=== PATIENT | male | born 1960 | race Caucasian/White ===

== ENCOUNTER 2017-09-28 19:49 | Observation (INO) | payer BC, SELFPAY ==
[2017-09-28] MEDS ORDERED: ONDANSETRON 4 MG (ODT) TAB ONE (20:34)
[2017-09-28] MEDS ORDERED: PROMETHAZINE 25 MG/ML VIAL ONE ×2 (21:34→23:30)
[2017-09-28] MEDS ORDERED: ONDANSETRON 4 MG/2 ML VIAL ONE (21:34)
[2017-09-28] MEDS ORDERED: NA CHLORIDE 0.9% 1,000 ML ONE ×2 (21:34→22:23)
[2017-09-28 21:42] LABS: Absolute Lymphocytes (CBC) 0.6 K/uL (0.7-4.9); Absolute Neutrophil 10.9 K/uL (1.8-8.0); Basophils % 0.4 % (0-1.3); Hematocrit 46.5 % (39.6-49.0); MCH 36.8 pg (27.0-35.0); MCV 107.4 fL (80-100); MPV 8.9 fL (7.6-11.3); Monocytes % 8.3 % (3.3-12.3); RBC Red Blood Cell Count 4.33 M/uL (4.33-5.43)
[2017-09-28 22:13] LABS: Blood Morphology Comment NOTED (NOT SEEN); Macrocytosis 1+; Platelet Estimate ADEQ; Urine White Blood Cell Casts OK
[2017-09-28] MEDS ORDERED: THIAMINE 200 MG/2 ML INJ ONE (22:21)
[2017-09-28] MEDS ORDERED: MULTIVITAMINS 10 ML VIAL (INJ) IV ONE (22:21)
[2017-09-28] MEDS ORDERED: FOLIC ACID 5 MG/ML VIAL ONE (22:23)
[2017-09-28] MEDS ORDERED: DIAZEPAM 5 MG TABLET ONE (22:32)
[2017-09-28 23:02] LABS: ALT/SGPT 119 U/L (12-78); AST/SGOT 80 U/L (15-37); Albumin 3.9 g/dL (3.4-5.0); Alkaline Phosphatase 70 U/L (45-117); Amylase Level 133 U/L (25-115); BUN Blood Urea Nitrogen 10 mg/dL (7-18); Bicarbonate 22 mmol/L (21-32); Bilirubin Direct 0.5 mg/dL (0-0.2); Bilirubin Total 1.6 mg/dL (0.2-1.0); Glucose Level 113 mg/dL (74-106); Lipase 297 U/L (73-393); Potassium 4.3 mmol/L (3.5-5.1); Protein, Total 7.3 g/dL (6.4-8.2); Sodium Level 141 mmol/L (136-145)
[2017-09-28 23:08] LABS: Alcohol Serum/Plasma < 3 mg/dL (<3)
[2017-09-29 00:44] LABS: Urine Blood NEGATIVE (NEG); Urine Glucose NEGATIVE (NEG); Urine Protein 2+ (NEG); Urine pH 7.5 (5.0-7.0)
--- NOTE | 2017-09-29 01:09 | RAD REPORT ---
EXAM DESCRIPTION: CTAbdomen Pelvis W Contrast - 09/29/2017 12:32 am CLINICAL HISTORY: Abdominal pain. nausea/vomiting COMPARISON: No comparisons TECHNIQUE: Biphasic CT imaging of the abdomen and pelvis was performed with 100 ml non-ionic IV cont rast. All CT scans are performed using dose optimization technique as appropriate and may include automated exposure control or mA/KV adjustment according to patient size. FINDINGS: The lung bases are clear.Small hiatal hernia is seen with irregular asymmetric calcificati on noted in the distal esophagus. The thickened portion of the distal esophagus measures up to 14 mm. The liver demonstrates diffuse fatty infiltration. No focal liver lesion or intrahepatic biliary dila tation. The spleen, pancreas, adrenal glands and kidneys within normal limits. No bowel obstruction, free air, free fluid or abscess. The appendix is normal. No evidence of signi ficant lymphadenopathy. No suspicious bony findings. Nodularity involves prostate gland which projects into the bladder base. IMPRESSION: Irregular asymmetric thickening of the distal esophagus with calcification is noted. The findings are worrisome for an esophageal mass. Advise follow-up upper endoscopy. Prominent fatty liver. Nodular enlargement of the prostate gland is seen projecting into the bladder base. Correlation with PSA levels is suggested.
[2017-09-29 02:10] LABS: Urine Bacteria <20 /HPF (NONE SEEN); Urine Mucus 3+ /HPF (NONE SEEN); Urine RBC <5 /HPF (NONE SEEN)
[2017-09-29 02:11] LABS: Urine Culture Reflex Order NOT NEEDED
--- NOTE | 2017-09-29 02:50 | ER ---
Nurse's Notes [facility] Name: Ant De La Paz Age: 56 yrs Sex: Male : 1960 Arrival Date: 09/28/2017 Time: 19:53 Bed 17 Private MD: Diagnosis: Nausea and vomiting-Intractable Presentation: 09/28 20:25 Presenting complaint: Patient states: He has been vomiting since 0500 this morning. aj1 Reports generalized abdominal pain, vomiting, diarrhea. Denies fever. Transition of care: patient was not received from another setting of care. Onset of symptoms was September 28, 2017 at 05:00. Risk Assessment: Do you want to hurt yourself or someone else? Patient reports no desire to harm self or others. Initial Sepsis Screen: Does the patient meet any 2 criteria? HR > 90 bpm. Does the patient have a suspected source of infection? No. Patient's initial sepsis screen is negative. Care prior to arrival: None. 20:25 Method Of Arrival: Wheelchair aj1 20:25 Acuity: CONOR 3 aj1 Triage Assessment: 20:28 General: Appears uncomfortable, Behavior is cooperative, agitated, restless. Pain: aj1 Denies pain. Neuro: Level of Consciousness is awake, alert, obeys commands. Cardiovascular: Patient's skin is warm and dry. Respiratory: Airway is patent Respiratory effort is even, unlabored, Respiratory pattern is regular, symmetrical. GI: Reports diarrhea, nausea, vomiting. Historical: - Allergies: 20:28 No Known Allergies; aj1 - Home Meds: 20:28 levetiracetam 750 mg oral tab 1 tab 2 times per day [Active]; escitalopram oxalate 20 aj1 mg oral tab 1 tab once daily [Active]; lisinopril 10 mg Oral tab 1 tab once daily [Active]; - PMHx: 20:28 Seizures; Hypertension; aj1 20:28 Pancreatitis; aj1 - Social history:: Smoking status: Patient uses tobacco products, smokes two packs cigarettes per day. - Ebola Screening: : Patient denies travel to an Ebola-affected area in the 21 days before illness onset. Screenin:28 Abuse screen: Denies threats or abuse. Denies injuries from another. Nutritional lp1 screening: No deficits noted. Tuberculosis screening: No symptoms or risk factors identified. Fall Risk None identified. Assessment: 21:27 General: Appears uncomfortable, Behavior is appropriate for age, Reports feeling ill lp1 for 12-24 hours, fatigue for. Pain: Complains of pain in abdomen Pain currently is 8 out of 10 on a pain scale. Quality of pain is described as sharp. Neuro: Level of Consciousness is awake, alert, obeys commands. Cardiovascular: Patient's skin is warm and dry. Respiratory: Respiratory effort is even, unlabored. GI: Pt is actively vomiting clear fluid. : No signs and/or symptoms were reported regarding the genitourinary system. EENT: No signs and/or symptoms were reported regarding the EENT system. Derm: Skin is intact, Skin is dry, Skin is flushed. Musculoskeletal: Circulation, motion, and sensation intact. 22:30 Reassessment: Patient and/or family updated on plan of care and expected duration. Pain lp1 level reassessed. Patient states feeling better. Patient states symptoms have improved. 22:42 Reassessment: Patient vomited at this time. lp1 23:30 Reassessment: Patient vomited at this time, provider notified. lp1 09/29 00:30 Reassessment: Patient is alert, oriented x 3, equal unlabored respirations, skin lp1 warm/dry/pink. Nausea decreased at this time Patient states feeling better. 01:35 Reassessment: Patient and/or family updated on plan of care and expected duration. Pain lp1 level reassessed. Provider at bedside to discuss results with patient and family. 02:15 Reassessment: Patient unable to tolerate PO fluids, attempted to drink 120ml of water; lp1 Patent vomited 300ml. 03:00 Reassessment: Patient continuing to have nausea, vomiting; Provider notified. lp1 03:50 Reassessment: Patient resting, comfortably, eyes closed, respirations unlabored; O2 at lp1 89% on RA, 2L NC placed while sleeping. 04:13 Reassessment: Dr. Justice at bedside. lp1 Vital Signs: 09/28 20:29 BP 150 / 100; Pulse 104; Resp 24; Temp 97.1(A); Pulse Ox 100% on R/A; Weight 80.74 kg aj1 (R); Height 6 ft. 0 in. (182.88 cm) (R); Pain 0/10; 21:41 BP 150 / 100; Pulse 85; Resp 20; Pulse Ox 100% on R/A; Pain 8/10; lp1 22:30 BP 139 / 89; Pulse 86; Resp 18; Pulse Ox 98% on R/A; lp1 23:00 BP 151 / 98; Pulse 90; Resp 20; Pulse Ox 99% on R/A; lp1 09/29 00:30 BP 137 / 99; Pulse 96; Resp 18; Pulse Ox 98% on R/A; lp1 01:36 BP 134 / 86; Pulse 100; Resp 18; Pulse Ox 98% on R/A; lp1 03:15 BP 116 / 80; Pulse 100; Resp 18; Pulse Ox 94% on R/A; lp1 04:13 BP 112 / 80; Pulse 78; Resp 18; Pulse Ox 97% on 2 lpm NC; lp1 09/28 20:29 Body Mass Index 24.14 (80.74 kg, 182.88 cm) aj1 ED Course: 09/28 19:53 Patient arrived in ED. es 20:26 Triage completed. aj1 20:29 Arm band placed on Patient placed in waiting room, Patient notified of wait time. aj1 21:16 Noreen Varma, RN is Primary Nurse. lp1 21:27 Inserted saline lock: 22 gauge in right antecubital area, using aseptic technique. lp1 Blood collected. 21:28 Patient has correct armband on for positive identification. Placed in gown. Bed in low lp1 position. Call light in reach. Pulse ox on. NIBP on. 22:06 Deloris Toledo FNP-C is PHCP. snw 22:06 Satya Parra MD is Attending Physician. snw 22:06 PHCP role handed off by Deloris Toledo FNP-C snw 22:06 Jovan Londono PA is PHCP. snw 22:08 Lab(s) recollected, by director of laboratory operations. lp1 09/29 00:[address] via wheelchair. kw1 00:27 CT completed. Patient tolerated procedure well. Patient moved back from CT. kw1 00:31 CT Abd/Pelvis - W/Contrast: no oral contrast In Process Unspecified. EDMS 01:36 No provider procedures requiring assistance completed. lp1 02:48 Juliane Beckham MD is Hospitalizing Provider. cp 03:33 Patient admitted, IV remains in place. lp1 Administered Medications: 09/28 20:34 Drug: Zofran 4 mg Route: PO; aj1 21:28 Follow up: Response: Nausea unchanged lp1 21:41 Drug: NS 0.9% 1000 ml Route: IV; Rate: 1000 ml; Site: right antecubital; lp1 22:40 Follow up: IV Status: Completed infusion; IV Intake: 1000ml lp1 21:41 Drug: Zofran 4 mg Route: IVP; Site: right antecubital; lp1 22:40 Follow up: Response: Nausea is decreased lp1 21:41 Drug: Phenergan 6.25 mg Route: IVP; Site: right antecubital; lp1 22:41 Follow up: Response: Nausea is decreased lp1 22:40 Not Given (Physician Discretion): Valium 5 mg IVP once lp1 22:40 Drug: Banana Bag - (NS 0.9% 1000 ml, foLIC Acid 1 mg, Thiamine 100 mg, Multivitamin 1 lp1 amp) Route: IV; Rate: 125 ml/hr; Site: right antecubital; 09/29 04:25 Follow up: IV Status: IV converted to saline lock lp1 09/28 22:40 Drug: Valium 5 mg Route: PO; lp1 23:32 Follow up: Response: No adverse reaction lp1 23:31 Drug: Phenergan 25 mg Route: IVP; Site: right antecubital; lp1 09/29 01:33 Follow up: Response: Nausea is decreased lp1 03:10 Drug: Reglan 10 mg Route: IVP; Site: right antecubital; lp1 03:54 Follow up: Response: Nausea is decreased lp1 03:10 Drug: Ativan 1 mg Route: IVP; Site: right antecubital; lp1 03:54 Follow up: Response: Marked relief of symptoms lp1 Intake: 09/28 22:40 IV: 1000ml; Total: 1000ml. lp1 Output: 22:45 Gastric: 300ml (Emesis); Total: 300ml. lp1 Outcome: 09/29 02:49 Decision to Hospitalize by Provider. cp 03:33 Condition: stable lp1 03:33 Instructed on the need for admit. 04:24 Admitted to [facility] via wheelchair, room 417, with chart, Report called to CINDY Castellon lp1 04:34 Patient left the ED. lp1 Signatures: Dispatcher [employer] Janie Campoverde RN RN aj1 Deloris Toledo, TANVI PAPER MACHINE BACKTENDER-Tiny Bliss Laura, RN RN lp1 Jovan Londono PA PA cp Wilhelm, Kimberly kw1 Corrections: (The following items were deleted from the chart) 09/28 23:19 21:27 Derm: Skin is intact, Skin is dry, Skin is normal, lp1 lp1
--- NOTE | 2017-09-29 02:50 | EDPHYS ---
Physician Documentation [facility] Name: Ant De La Paz Age: 56 yrs Sex: Male : 1960 Arrival Date: 09/28/2017 Time: 19:53 Bed 17 Private MD: ED Physician Satya Parra HPI: 09/28 21:59 This 56 yrs old Male presents to ER via Wheelchair with complaints of snw Vomiting, DEHYDRATION,CHILLS. 21:59 The patient presents to the emergency department with nausea, vomiting, abdominal pain, snw of the generalized. Onset: The symptoms/episode began/occurred suddenly, this morning. Possible causes: unknown. The symptoms are aggravated by nothing. Associated signs and symptoms: Pertinent positives: tremor and chills/hot flashes/sweating. Severity of symptoms: At their worst the symptoms were moderate severe. It is unknown whether or not the patient has had similar symptoms in the past. The patient has not recently seen a physician. awoke at 0500 with abd discomfort. Slept until 0700, vomited x 2 episodes, drove down from [place]. Upon arrival to [facility] pt states he became sweaty and has vomited every 5-10 minutes since. Historical: - Allergies: 20:28 No Known Allergies; aj1 - Home Meds: 20:28 levetiracetam 750 mg oral tab 1 tab 2 times per day [Active]; escitalopram oxalate 20 aj1 mg oral tab 1 tab once daily [Active]; lisinopril 10 mg Oral tab 1 tab once daily [Active]; - PMHx: 20:28 Seizures; Hypertension; aj1 20:28 Pancreatitis; aj1 - Social history:: Smoking status: Patient uses tobacco products, smokes two packs cigarettes per day. - Ebola Screening: : Patient denies travel to an Ebola-affected area in the 21 days before illness onset. ROS: 21:59 Constitutional: Negative for fever, chills, and weight loss, Eyes: Negative for injury, snw pain, redness, and discharge, ENT: Negative for injury, pain, and discharge, Neck: Negative for injury, pain, and swelling, Cardiovascular: Negative for chest pain, palpitations, and edema, Respiratory: Negative for shortness of breath, cough, wheezing, and pleuritic chest pain, Back: Negative for injury and pain, : Negative for injury, bleeding, discharge, and swelling, MS/Extremity: Negative for injury and deformity, Skin: Negative for injury, rash, and discoloration, Neuro: Negative for headache, weakness, numbness, tingling, and seizure. 21:59 Abdomen/GI: Positive for abdominal pain, nausea and vomiting. Exam: 21:57 Constitutional: This is a well developed, well nourished patient who is awake, alert, snw and in no acute distress. 21:57 Head/Face: Normocephalic, atraumatic. Eyes: Pupils equal round and reactive to light, extra-ocular motions intact. Lids and lashes normal. Conjunctiva and sclera are non-icteric and not injected. Cornea within normal limits. Periorbital areas with no swelling, redness, or edema. ENT: Nares patent. No nasal discharge, no septal abnormalities noted. Tympanic membranes are normal and external auditory canals are clear. Oropharynx with no redness, swelling, or masses, exudates, or evidence of obstruction, uvula midline. Mucous membranes moist. Neck: Trachea midline, no thyromegaly or masses palpated, and no cervical lymphadenopathy. Supple, full range of motion without nuchal rigidity, or vertebral point tenderness. No Meningismus. Chest/axilla: Normal chest wall appearance and motion. Nontender with no deformity. No lesions are appreciated. 21:57 Respiratory: Lungs have equal breath sounds bilaterally, clear to auscultation and percussion. No rales, rhonchi or wheezes noted. No increased work of breathing, no retractions or nasal flaring. Back: No spinal tenderness. No costovertebral tenderness. Full range of motion. 21:57 Constitutional: The patient appears alert, anxious. 21:57 Cardiovascular: Rate: tachycardic, Heart sounds: normal. 21:57 Abdomen/GI: Inspection: abdomen appears normal, Bowel sounds: active, all quadrants, Palpation: mild abdominal tenderness, in all quadrants. 21:57 Skin: Appearance: Color: lalitha, Temperature: warm, Moisture: dry. 21:57 Neuro: Orientation: is normal, Mentation: is normal, seizure activity, is not displayed by the patient, Abnormal movements: tremulous. Vital Signs: 20:29 BP 150 / 100; Pulse 104; Resp 24; Temp 97.1(A); Pulse Ox 100% on R/A; Weight 80.74 kg aj1 (R); Height 6 ft. 0 in. (182.88 cm) (R); Pain 0/10; 21:41 BP 150 / 100; Pulse 85; Resp 20; Pulse Ox 100% on R/A; Pain 8/10; lp1 22:30 BP 139 / 89; Pulse 86; Resp 18; Pulse Ox 98% on R/A; lp1 23:00 BP 151 / 98; Pulse 90; Resp 20; Pulse Ox 99% on R/A; lp1 09/29 00:30 BP 137 / 99; Pulse 96; Resp 18; Pulse Ox 98% on R/A; lp1 01:36 BP 134 / 86; Pulse 100; Resp 18; Pulse Ox 98% on R/A; lp1 03:15 BP 116 / 80; Pulse 100; Resp 18; Pulse Ox 94% on R/A; lp1 04:13 BP 112 / 80; Pulse 78; Resp 18; Pulse Ox 97% on 2 lpm NC; lp1 09/28 20:29 Body Mass Index 24.14 (80.74 kg, 182.88 cm) [facility] MDM: 09/28 22:06 Patient medically screened. snw 09/29 02:47 Data reviewed: vital signs, nurses notes, lab test result(s), radiologic studies, CT cp scan, and as a result, I will admit patient. Response to treatment: the patient's symptoms have mildly improved after treatment, VSS. Patient continues to vomit with po fluids. Physician consultation: Juliane Beckham MD was contacted at 02:48, regarding admission, to the medical/surgical unit. patient's condition. 09/28 21:21 Order name: Amylase, Serum; Complete Time: 23:22 snw 09/28 21:21 Order name: Basic Metabolic Panel; Complete Time: 23:22 snw 09/29 01:04 Interpretation: Normal except: GLUC 113; GFR 57. cp 09/28 21:21 Order name: CBC with Diff; Complete Time: 22:18 snw 09/29 02:17 Interpretation: Normal except: WBC 12.6; MCV 107.4; MCH 36.8; ADELA% 86.3; LYM% 5.0; NEUT cp A 10.9; LYMA 0.6. 09/28 21:21 Order name: Creatinine for Radiology; Complete Time: 23:22 snw 09/28 21:21 Order name: Hepatic Function; Complete Time: 23:22 snw 09/28 21:21 Order name: Lipase; Complete Time: 23:22 snw 09/28 21:21 Order name: Urine Microscopic Only; Complete Time: 02:17 snw 09/29 02:17 Interpretation: Normal except: MUCUS 3+. 09/28 21:45 Order name: CBC Smear Scan; Complete Time: 22:18 EDMS 09/28 22:03 Order name: AMMONIA; Complete Time: 23:22 snw 09/28 22:49 Order name: Alcohol Serum/Plasma; Complete Time: 23:22 EDMS 09/28 23:24 Order name: CT Abd/Pelvis - W/Contrast: no oral contrast; Complete Time: 01:11 cp 09/29 02:18 Interpretation: Report reviewed. 09/29 00:24 Order name: Urine Dipstick--Ancillary (enter results); Complete Time: 01:04 ms 09/29 02:18 Interpretation: Normal except: UKET 4+; UPH 7.5; UPROT 2+. 09/28 21:21 Order name: IV Saline Lock; Complete Time: 21:26 snw 09/28 21:21 Order name: Labs collected and sent; Complete Time: 21:27 [facility] 09/28 21:21 Order name: Urine Dipstick-Ancillary (obtain specimen); Complete Time: 00:28 [facility] 09/29 01:13 Order name: PO challenge; Complete Time: 02:23 cp Administered Medications: 09/28 20:34 Drug: Zofran 4 mg Route: PO; aj1 21:28 Follow up: Response: Nausea unchanged lp1 21:41 Drug: NS 0.9% 1000 ml Route: IV; Rate: 1000 ml; Site: right antecubital; lp1 22:40 Follow up: IV Status: Completed infusion; IV Intake: 1000ml lp1 21:41 Drug: Zofran 4 mg Route: IVP; Site: right antecubital; lp1 22:40 Follow up: Response: Nausea is decreased lp1 21:41 Drug: Phenergan 6.25 mg Route: IVP; Site: right antecubital; lp1 22:41 Follow up: Response: Nausea is decreased lp1 22:40 Not Given (Physician Discretion): Valium 5 mg IVP once lp1 22:40 Drug: Banana Bag - (NS 0.9% 1000 ml, foLIC Acid 1 mg, Thiamine 100 mg, Multivitamin 1 lp1 amp) Route: IV; Rate: 125 ml/hr; Site: right antecubital; 09/29 04:25 Follow up: IV Status: IV converted to saline lock lp1 09/28 22:40 Drug: Valium 5 mg Route: PO; lp1 23:32 Follow up: Response: No adverse reaction lp1 23:31 Drug: Phenergan 25 mg Route: IVP; Site: right antecubital; lp1 09/29 01:33 Follow up: Response: Nausea is decreased lp1 03:10 Drug: Reglan 10 mg Route: IVP; Site: right antecubital; lp1 03:54 Follow up: Response: Nausea is decreased lp1 03:10 Drug: Ativan 1 mg Route: IVP; Site: right antecubital; lp1 03:54 Follow up: Response: Marked relief of symptoms lp1 Disposition: 04:35 Co-signature as Attending Physician, Satya Parra MD. [facility] Disposition: 09/29/17 02:49 Hospitalization ordered by Juliane Beckham for Observation. Preliminary diagnosis is Nausea and vomiting - Intractable. - Bed requested for Telemetry/MedSurg (observation). - Status is Observation. lp1 - Condition is Stable. - Problem is new. - Symptoms have improved. UTI on Admission? No Signatures: Dispatcher [employer] [facility] Janie Isaac RN RN ajAlly Goldstein RN RN kl Lam, Pin, MD MD pk Deloris Toledo, COMPUTER NUMERICAL CONTROL PROGRAMMER-C COMPUTER NUMERICAL CONTROL PROGRAMMER-Csnw Noreen Varma RN RN lp1 Jovan Londono PA PA cp Corrections: (The following items were deleted from the chart) 09/28 22:49 22:04 ETHANOL+C.LAB.BRZ ordered. [facility] EDME 09/29 02:17 01:04 Normal except: WBC 12.6; MCV 107.4; MCH 36.8. cp cp 03:43 02:49 Hospitalization Ordered by Juliane Beckham MD for Observation. Preliminary diagnosis is Nausea and vomiting - Intractable. Bed requested for Telemetry/MedSurg (observation). Status is Observation. Condition is Stable. Problem is new. Symptoms have improved. UTI on Admission? No. cp 04:34 03:43 09/29/2017 02:49 Hospitalization Ordered by Juliane Beckham MD for Observation. lp1 Preliminary diagnosis is Nausea and vomiting - Intractable. Bed requested for Telemetry/MedSurg (observation). Status is Observation. Condition is Stable. Problem is new. Symptoms have improved. UTI on Admission? No. kl
[2017-09-29] MEDS ORDERED: METOCLOPRAMIDE 10 MG/2mL INJ ONE (03:02)
[2017-09-29] MEDS ORDERED: LORazepam 2 MG/ML VIAL ONE (03:02)
--- NOTE | 2017-09-29 04:22 | P.HP ---
Certification for Inpatient Patient admitted to: Observation With expected LOS: <2 Midnights Practitioner: I am a practitioner with admitting privileges, knowledge of patient current condition, hospital course, and medical plan of care. Services: Services provided to patient in accordance with Admission requirements found in Title 42 Section 412.3 of the Code of Federal Regulations Patient History Date of Service: 09/29/17 Reason for admission: Intractable nausea and vomiting History of Present Illness: Mr. De La Paz he is a 56-year-old Male, with history of hypertension, seizure disorder, pancreatitis, tobacco and alcohol abuse, who started about 5:00 a.m. yesterday with nausea and vomiting. He was unable to keep anything down. The patient also has had generalized abdominal pain and diarrhea. He denies fever but had chills and sweating episodes. No shows leukocytosis, WBC 12.6 K, liver function her normal. CT abdomen and pelvis, report is concerning for a distal esophagus mass, also fatty liver. At my encounter, after receive antiemetic medication, the patient is starting to feel better. Allergies No Known Allergies Allergy (Verified 09/29/17 03:31) - Past Medical/Surgical History -: Hypertension -: Seizure disorder Past Surgical History: Reviewed- Non-Contributory - Family History Family History: Reviewed- Non-Contributory - Social History Smoking Status: Current every day smoker Counseled patient to stop smoking for: less than 10 minutes Smoking therapy provided: Yes Patient receptive to therapy: No Alcohol use: Yes CD- Drugs: No Place of Residence: Home Review of Systems 10-point ROS is otherwise unremarkable Physical Examination - Physical Exam General: Alert, In no apparent distress HEENT: Atraumatic, PERRLA, Mucous membr. moist/pink, EOMI, Sclerae nonicteric Neck: Supple, 2+ carotid pulse no bruit, No LAD, Without JVD or thyroid abnormality Respiratory: Clear to auscultation bilaterally, Normal air movement Cardiovascular: Regular rate/rhythm, Normal S1 S2 Gastrointestinal: Normal bowel sounds, No tenderness Musculoskeletal: No tenderness Integumentary: No rashes Neurological: Normal gait, Normal speech, Normal strength at 5/5 x4 extr, Normal tone, Normal affect Lymphatics: No axilla or inguinal lymphadenopathy - Studies Laboratory Data (last 24 hrs) 09/28/17 22:12: Creatinine 1.20 09/28/17 22:12: Sodium 141, Potassium 4.3, BUN 10, Creatinine 1.30, Glucose 113 H, Total Bilirubin 1.6 H, AST 80 H, ALT 119 H, Alkaline Phosphatase 70, Amylase 133 H, Lipase 297 09/28/17 21:25: WBC 12.6 H, Hgb 15.9, Hct 46.5, Plt Count 201 Assessment and Plan - Problems (Diagnosis) (1) Acute gastroenteritis Current Visit: Yes Status: Acute (2) Mass of esophagus Current Visit: Yes Status: Acute (3) Tobacco abuse Current Visit: Yes Status: Acute (4) Hypertension Current Visit: Yes Status: Acute Qualifiers: Hypertension type: essential hypertension Qualified Code(s): I10 - Essential (primary) hypertension - Plan The patient will be admitted to the hospital due to intractable nausea vomiting. Will continue with symptomatic medication and IV fluids. Will order clear liquid diet and advanced as tolerated. CT scan of the abdomen and pelvis is concerning of a distal esophagus mass. I will go ahead and consult GI specialist to make a plan for farther EGD, most likely as outpatient. - Advance Directives Does patient have a Living Will: No Does patient have a Durable POA for Healthcare: No - Code Status/Comfort Care Code Status Assessed: Yes Code Status: Full Code
[2017-09-29 04:49] VITALS: O2SAT 97
[2017-09-29] MEDS ORDERED: ONDANSETRON 4 MG/2 ML VIAL IV PRN (05:55)
[2017-09-29] MEDS ORDERED: NA CHLORIDE 0.9% 1,000 ML IV SCH (05:55)
[2017-09-29 07:53] VITALS: BMI 24.1
[2017-09-29 12:18] VITALS: BP 117/93; TEMP 99.3
[2017-09-29] MEDS ORDERED: levETIRAcetam 500 MG TAB PO SCH (21:00)
[2017-09-30] MEDS ORDERED: ESCITALOPRAM 20 MG TAB PO SCH (09:00)
[2017-09-30] MEDS ORDERED: LISINOPRIL 10 MG TAB PO SCH (09:00)
== END 2017-09-29 14:36 | disposition left against medical advice (07) ==
LOC: ER 19:49 → ERHOLD 09-29 03:02 → 4TH 09-29 04:25
PROVIDERS: ADMIT Internal Medicine; ATTEND Internal Medicine
DX: K52.9 Noninfective gastroenteritis and colitis, unspecified (principal); K22.9 Disease of esophagus, unspecified; I10 Essential (primary) hypertension; G40.909 Epilepsy, unspecified, not intractable, without status epilepticus; F17.210 Nicotine dependence, cigarettes, uncomplicated
CPT/HCPCS: 36415; 74177; 80048; 80076; 80320; 81003; 81015; 82140; 82150; 83690; 85025; 96361; 96365; 96366; 96375; 99285; G0378; J2405; J2550; J2765; J3411; J7030; Q9967